=== PATIENT | female | born 1990 | race Caucasian/White ===

== ENCOUNTER 2017-04-10 05:56 | Inpatient (IN) ==
[2017-04-10] MEDS ORDERED: ONDANSETRON 4 MG/2 ML VIAL IV PRN (06:20)
[2017-04-10] MEDS: LACTATED RINGERS 1,000 ML IV SCH ×3 (06:35→22:45)
[2017-04-10 06:36] LABS: Basophils % 0.1 % (0.0-0.8); Eosinophils % 0.2 % (0.00-10.9); Hematocrit 37.5 VOL% (35.7-47.0); Hemoglobin 13.3 GM/DL (12.0-16.0); Immature Granulocytes % 0.9 %; Lymphocytes # 1.6 10*3/uL (1.4-4.0); Lymphocytes % 13.6 % (21.3-54.2); Mean Corpuscular HGB Conc 35.5 GM/DL (32-36); Mean Corpuscular Hemoglobin 34 PG (27-34); Mean Corpuscular Volume 96.2 FL (87-102); Mean Platelet Volume 12.1 FL (9.6-12.0); Monocytes # 0.6 10*3/uL (0.11-0.8); Monocytes % 4.9 % (1.7-12.7); Neutrophils # 9.2 10*3/uL (1.4-7.4); Neutrophils % 80.3 % (38.7-73.9); Platelet Count 117 T/CUMM (130-400); Red Cell Distribution Width 12.9 % (9.3-17.3); White Blood Count 11.4 T/CUMM (4-12)
[2017-04-10 07:00] LABS: Albumin 2.6 G/DL (3.4-5.0); Bilirubin,Total 0.4 MG/DL (0.2-1.0); Calcium 8.6 MG/DL (8.5-10.1); Osmolality,Calculated 274.8 MOS/KG (273-304); Potassium 3.6 MMOL/L (3.5-5.1); Total Protein 6.3 G/DL (6.4-8.3)
[2017-04-10] MEDS: OXYTOCIN/LR 20 UNIT/1,000 ML BAG IV SCH ×2 (07:24→14:39)
[2017-04-10] MEDS: BUTORPHANOL 2 MG/ML VIAL IV PRN ×2 (15:56→19:49)
[2017-04-10] MEDS ORDERED: hydrOXYzine HCL 25 MG/1 ML VIAL IM PRN (21:33)
[2017-04-10] MEDS ORDERED: FAMOTIDINE 20 MG/2 ML VIAL IV ONE (21:33)
[2017-04-10] MEDS ORDERED: CITRIC ACID/SODIUM CITRATE 30 ML UDCUP PO ONE (21:33)
[2017-04-10] MEDS ORDERED: diphenhydrAMINE 50 MG/1 ML VIAL IV PRN ×2 (21:33)
[2017-04-10] MEDS ORDERED: ePHEDrine 50 MG/ML AMP IV PRN (21:33)
[2017-04-10] MEDS ORDERED: PROMETHAZINE 25 MG/1 ML VIAL IM ONE (21:33)
[2017-04-10] MEDS ORDERED: fentaNYL 2 MCG/ROPIV 0.2% EPID 150 ML EPIDURAL SCH (21:33)
[2017-04-10] MEDS ORDERED: LACTATED RINGERS 1,000 ML IV ONE (21:33)
[2017-04-10] MEDS ORDERED: TERBUTALINE 1 MG/1 ML VIAL SUBCUT ONE (22:30)
[2017-04-11] MEDS: LACTATED RINGERS 1,000 ML IV SCH (03:29)
[2017-04-11] MEDS ORDERED: LIDOCAINE 1% 50 ML VIAL ONE (09:37)
[2017-04-11] MEDS ORDERED: miSOPROStol 200 MCG TABLET ONE (09:37)
[2017-04-11] MEDS ORDERED: METHYLERGONOVINE 0.2 MG/1 ML AMP ONE (09:38)
[2017-04-11] MEDS ORDERED: SODIUM CHLORIDE 0.9% 100 ML IV ONE (09:55)
[2017-04-11] MEDS ORDERED: SUGAMMADEX 200 MG/2 ML VIAL IV ONE (10:11)
[2017-04-11] MEDS ORDERED: ONDANSETRON 4 MG/2 ML VIAL IV PRN (11:26)
[2017-04-11] MEDS ORDERED: OXYTOCIN/LR 20 UNIT/1,000 ML BAG IV ONE (11:26)
[2017-04-11] MEDS ORDERED: RHO(D) IMMUNE GLOBULIN 300 MCG SYRINGE IM ONE (11:26)
[2017-04-11] MEDS ORDERED: ACETAMINOPHEN 325 MG TABLET PO PRN (11:26)
[2017-04-11] MEDS ORDERED: LACTATED RINGERS 1,000 ML IV SCH (11:30)
[2017-04-11] MEDS ORDERED: SEVOFLURANE 1 UNIT/15 MINUTE INH ONE (12:07)
[2017-04-11] MEDS ORDERED: MIDAZOLAM 2 MG/2 ML VIAL ONE (12:08)
[2017-04-11] MEDS ORDERED: ONDANSETRON 4 MG/2 ML VIAL ONE (12:08)
[2017-04-11] MEDS ORDERED: MORPHINE 10 MG/10 ML VIAL ONE (12:08)
[2017-04-11] MEDS ORDERED: fentaNYL 100 MCG/2 ML VIAL ONE (12:08)
[2017-04-11] MEDS ORDERED: ROCURONIUM 100 MG/10 ML VIAL IV ONE (12:09)
[2017-04-11] MEDS ORDERED: LACTATED RINGERS 1,000 ML IV ONE (12:09)
[2017-04-11] MEDS ORDERED: PROPOFOL 200 MG/20 ML VIAL IV ONE (12:09)
[2017-04-11] MEDS ORDERED: OXYTOCIN 10 UNIT/ML VIAL ONE (12:12)
[2017-04-11] MEDS ORDERED: HYDROmorphone 2 MG/1 ML VIAL IV ONE (12:12)
[2017-04-11] MEDS: MEPERIDINE 50 MG/1 ML VIAL IM PRN ×2 (17:53→21:03)
[2017-04-11 18:12] LABS: Basophils % 0.1 % (0.0-0.8); Hematocrit 23.9 VOL% (35.7-47.0); Hemoglobin 8.3 GM/DL (12.0-16.0); Immature Granulocytes % 0.6 %; Lymphocytes # 1.2 10*3/uL (1.4-4.0); Lymphocytes % 7.6 % (21.3-54.2); Mean Corpuscular HGB Conc 34.7 GM/DL (32-36); Mean Corpuscular Hemoglobin 35 PG (27-34); Mean Corpuscular Volume 99.6 FL (87-102); Mean Platelet Volume 12.2 FL (9.6-12.0); Monocytes # 0.6 10*3/uL (0.11-0.8); Monocytes % 4.1 % (1.7-12.7); Neutrophils # 13.6 10*3/uL (1.4-7.4); Neutrophils % 87.6 % (38.7-73.9); Platelet Count 101 T/CUMM (130-400); Red Cell Distribution Width 13.1 % (9.3-17.3); White Blood Count 15.5 T/CUMM (4-12)
[2017-04-11 18:51] LABS: Band Neutrophils 4 % (0-10); Lymphocytes 7 % (20-55); Segmented Neutrophils 84 % (50-85); Total Cells Counted 100
[2017-04-11 18:53] LABS: Basophilic Stippling Few; Hypochromasia 1+; Platelet Estimate Adequate
[2017-04-11] MEDS: FERROUS SULFATE 325 MG TABLET PO SCH (21:03)
[2017-04-11] MEDS ORDERED: MEPERIDINE 50 MG/1 ML VIAL IV PRN (21:08)
[2017-04-11] MEDS ORDERED: SODIUM CHLORIDE 0.9% 250 ML IV PRN (21:09)
[2017-04-11] MEDS: DOCUSATE SODIUM 100 MG CAPSULE PO SCH (21:24)
[2017-04-12 07:43] LABS: Basophils % 0.2 % (0.0-0.8); Eosinophils % 0.1 % (0.00-10.9); Hematocrit 28.3 VOL% (35.7-47.0); Hemoglobin 9.8 GM/DL (12.0-16.0); Immature Granulocytes % 0.8 %; Immature Granulocytes Absolute 0.09 #; Lymphocytes # 0.9 10*3/uL (1.4-4.0); Lymphocytes % 8.1 % (21.3-54.2); Mean Corpuscular HGB Conc 34.6 GM/DL (32-36); Mean Corpuscular Hemoglobin 33 PG (27-34); Mean Platelet Volume 11.4 FL (9.6-12.0); Monocytes # 0.6 10*3/uL (0.11-0.8); Monocytes % 5.1 % (1.7-12.7); Neutrophils # 9.7 10*3/uL (1.4-7.4); Neutrophils % 85.7 % (38.7-73.9); Platelet Count 85 T/CUMM (130-400); Red Blood Count 3.01 MC/CUMM (3.8-5.5); Red Cell Distribution Width 16.1 % (9.3-17.3); White Blood Count 11.3 T/CUMM (4-12)
[2017-04-12] MEDS: IBUPROFEN 800 MG TABLET PO PRN ×2 (08:19→17:02)
[2017-04-12] MEDS ORDERED: IBUPROFEN 600 MG TABLET PO PRN (08:35)
[2017-04-12] MEDS: DOCUSATE SODIUM 100 MG CAPSULE PO SCH ×2 (09:11→21:00)
[2017-04-12] MEDS: FERROUS SULFATE 325 MG TABLET PO SCH ×2 (09:11→21:00)
[2017-04-12] MEDS: MULTIVITAMIN (PRENATAL) TABLET PO SCH (09:11)
[2017-04-12] MEDS: SIMETHICONE CHEW 80 MG TABLET PO PRN ×2 (11:57→21:00)
[2017-04-12] MEDS: MAGNESIUM HYDROXIDE SUSP 30 ML UDCUP PO PRN ×2 (11:57→21:00)
[2017-04-13 06:00] LABS: Basophils % 0.2 % (0.0-0.8); Eosinophils # 0.1 10*3/uL (0.0-0.87); Eosinophils % 0.8 % (0.00-10.9); Hematocrit 25.3 VOL% (35.7-47.0); Hemoglobin 8.8 GM/DL (12.0-16.0); Immature Granulocytes % 1.1 %; Immature Granulocytes Absolute 0.12 #; Lymphocytes # 1.2 10*3/uL (1.4-4.0); Lymphocytes % 11.3 % (21.3-54.2); Mean Corpuscular HGB Conc 34.8 GM/DL (32-36); Mean Corpuscular Hemoglobin 33 PG (27-34); Mean Corpuscular Volume 94.1 FL (87-102); Mean Platelet Volume 11.6 FL (9.6-12.0); Monocytes # 0.5 10*3/uL (0.11-0.8); Monocytes % 4.7 % (1.7-12.7); Neutrophils # 8.7 10*3/uL (1.4-7.4); Neutrophils % 81.9 % (38.7-73.9); Platelet Count 101 T/CUMM (130-400); Red Blood Count 2.69 MC/CUMM (3.8-5.5); Red Cell Distribution Width 16.1 % (9.3-17.3); White Blood Count 10.7 T/CUMM (4-12)
[2017-04-13 06:35] LABS: Band Neutrophils 3 % (0-10); Eosinophils 1 % (0-10); Hypochromasia Slight; Lymphocytes 10 % (20-55); Platelet Estimate Decreased; Segmented Neutrophils 80 % (50-85); Total Cells Counted 100
[2017-04-13] MEDS: DOCUSATE SODIUM 100 MG CAPSULE PO SCH ×2 (09:41→21:48)
[2017-04-13] MEDS: MULTIVITAMIN (PRENATAL) TABLET PO SCH (09:41)
[2017-04-13] MEDS: FERROUS SULFATE 325 MG TABLET PO SCH ×2 (09:41→21:48)
[2017-04-13 13:45] LABS: Hematocrit 27.4 VOL% (35.7-47.0); Hemoglobin 9.7 GM/DL (12.0-16.0)
[2017-04-13] MEDS: IBUPROFEN 800 MG TABLET PO PRN (16:25)
[2017-04-14] MEDS: IBUPROFEN 800 MG TABLET PO PRN ×3 (00:13→14:59)
[2017-04-14] MEDS: FERROUS SULFATE 325 MG TABLET PO SCH ×3 (07:56→21:40)
[2017-04-14] MEDS: SIMETHICONE CHEW 80 MG TABLET PO PRN ×2 (07:56→14:59)
[2017-04-14] MEDS: MAGNESIUM HYDROXIDE SUSP 30 ML UDCUP PO PRN ×3 (07:56→21:40)
[2017-04-14] MEDS: MULTIVITAMIN (PRENATAL) TABLET PO SCH ×2 (07:56→14:55)
[2017-04-14] MEDS: DOCUSATE SODIUM 100 MG CAPSULE PO SCH ×3 (07:56→21:40)
[2017-04-15] MEDS: IBUPROFEN 800 MG TABLET PO PRN ×2 (00:26→06:50)
[2017-04-15 08:26] VITALS: BP 131/74
[2017-04-15] MEDS: FERROUS SULFATE 325 MG TABLET PO SCH (09:23)
[2017-04-15] MEDS: MULTIVITAMIN (PRENATAL) TABLET PO SCH (09:23)
[2017-04-15] MEDS: DOCUSATE SODIUM 100 MG CAPSULE PO SCH (09:23)
== END 2017-04-15 11:15 | disposition home or self-care (01) | DRG 765 ==
LOC: N.LDOUT 05:56 → N.LD 05:57 → N.OB 04-11 13:57
PROVIDERS: ADMIT Obstetrics & Gynecology; ATTEND Obstetrics & Gynecology
PROC: LDCSECT (ICD-10-PCS; 2017-04-11 09:55)